=== PATIENT | male | born 1985 | race Two or more races ===

== ENCOUNTER 2016-09-01 11:43 | Emergency (ER) | payer SELFPAY ==
[~2016-09-01] VITALS: Ht 177.8 cm; Wt 95.3 kg
[2016-09-01 11:43] VITALS: BP 129/84
== END 2016-09-01 12:15 | disposition home or self-care (01) ==
LOC: ER 11:45
DX: J32.9 Chronic sinusitis, unspecified (principal); J45.909 Unspecified asthma, uncomplicated; F10.20 Alcohol dependence, uncomplicated
CPT/HCPCS: 99283; A4606; Z7610

== ENCOUNTER 2017-11-01 16:19 | Emergency (ER) | payer MEDICAID ==
[~2017-11-01] VITALS: Ht 177.8 cm; Wt 106.1 kg
[2017-11-01 16:19] VITALS: BP 136/91
== END 2017-11-01 17:54 | disposition home or self-care (01) ==
LOC: ER 16:21
DX: N43.3 Hydrocele, unspecified (principal); F10.10 Alcohol abuse, uncomplicated
CPT/HCPCS: 76870-TC; A4606; Z7610